=== PATIENT | male | born 1990 | race Caucasian/White ===

== ENCOUNTER → 2024-02-07 | Outpatient (CLI) | payer SELFPAY ==
[~2024-02-07] MED LIST: BIAX500T; FLUT44IN; No Historical Meds
== END ==
LOC: M OUTALCOH 07:56
PROVIDERS: ATTEND Psychiatry & Neurology Psychiatry
DX: F15.20 Other stimulant dependence, uncomplicated (principal); F12.20 Cannabis dependence, uncomplicated

== ENCOUNTER → 2024-02-22 | Outpatient (RCR) | payer MEDICAID | LOC: M OUTALCOH 02-15 09:59 | PROVIDERS: ATTEND Psychiatry & Neurology Psychiatry | DX: F15.20 Other stimulant dependence, uncomplicated (principal); F12.20 Cannabis dependence, uncomplicated ==

== ENCOUNTER 2024-03-20 16:00 | Outpatient (RCR) | payer OTHER | END 2024-03-23 | LOC: M OUTALCOH 16:00 | PROVIDERS: ATTEND Psychiatry & Neurology Psychiatry | DX: F15.20 Other stimulant dependence, uncomplicated (principal); F12.20 Cannabis dependence, uncomplicated ==

== ENCOUNTER 2024-04-19 15:00 | Outpatient (RCR) | payer MEDICAID | END 2024-04-23 | LOC: M OUTALCOH 15:00 | PROVIDERS: ATTEND Psychiatry & Neurology Psychiatry | DX: F15.20 Other stimulant dependence, uncomplicated (principal); F12.20 Cannabis dependence, uncomplicated ==

== ENCOUNTER 2024-05-23 09:00 | Outpatient (RCR) | payer MEDICAID | END 2024-05-24 | LOC: M OUTALCOH 09:00 | PROVIDERS: ATTEND Psychiatry & Neurology Psychiatry | DX: F15.20 Other stimulant dependence, uncomplicated (principal); F12.20 Cannabis dependence, uncomplicated ==

== ENCOUNTER 2024-06-20 15:54 | Outpatient (RCR) | payer MEDICAID | END 2024-06-21 | LOC: M OUTALCOH 15:54 | PROVIDERS: ATTEND Psychiatry & Neurology Psychiatry | DX: F15.20 Other stimulant dependence, uncomplicated (principal); F12.20 Cannabis dependence, uncomplicated ==

== ENCOUNTER → 2024-07-22 | Outpatient (RCR) | payer MEDICAID | LOC: M OUTALCOH 06-24 16:00 | PROVIDERS: ATTEND Psychiatry & Neurology Psychiatry | DX: F15.20 Other stimulant dependence, uncomplicated (principal); F12.20 Cannabis dependence, uncomplicated ==

== ENCOUNTER 2024-08-15 14:47 | Outpatient (RCR) | payer MEDICAID | END 2024-08-21 | LOC: M OUTALCOH 14:47 | PROVIDERS: ATTEND Psychiatry & Neurology Psychiatry | DX: F15.20 Other stimulant dependence, uncomplicated (principal); F12.20 Cannabis dependence, uncomplicated ==

== ENCOUNTER 2024-10-22 15:45 | Outpatient (RCR) | payer MEDICAID | END 2024-11-21 | LOC: M OUTALCOH 15:45 | PROVIDERS: ATTEND Psychiatry & Neurology Psychiatry | DX: F15.20 Other stimulant dependence, uncomplicated (principal); F12.20 Cannabis dependence, uncomplicated ==

== ENCOUNTER 2024-12-03 16:22 | Outpatient (RCR) | payer MEDICAID | END 2024-12-22 | LOC: M OUTALCOH 16:22 | PROVIDERS: ATTEND Psychiatry & Neurology Psychiatry | DX: F15.20 Other stimulant dependence, uncomplicated (principal); F12.20 Cannabis dependence, uncomplicated ==

== ENCOUNTER → 2025-01-21 | Outpatient (RCR) | payer MEDICAID | LOC: M OUTALCOH 15:45 | PROVIDERS: ATTEND Psychiatry & Neurology Psychiatry | DX: F15.20 Other stimulant dependence, uncomplicated (principal); F12.20 Cannabis dependence, uncomplicated ==

== ENCOUNTER 2025-02-25 16:15 | Outpatient (RCR) | payer MEDICAID | END 2025-03-23 | LOC: M OUTALCOH 16:15 | PROVIDERS: ATTEND Psychiatry & Neurology Psychiatry | DX: F15.20 Other stimulant dependence, uncomplicated (principal); F12.20 Cannabis dependence, uncomplicated ==